=== PATIENT | female | born 1975 | race Caucasian/White ===

== ENCOUNTER → 2017-08-17 | Outpatient (CLI) | payer OTHER ==
[~2017-08-17] MED LIST: ALBU3IS INH; ALBU90I INH; ALBU90OI INH; ALBU90OI61 INH; ARIP15; ARIP15 PO; ASPI81CH PO; AZIT250 PO; BUDE6HFA; BUDE6HFA INH; Benztropine Mesy1 MG PO; CLON.5 PO; CYCL10 PO; Cleocin HCl150 MG PO; FLUO10 PO; FLUSAL2505 IH; HYDACE5 PO; HYDCHL12.5 PO; HYDR-86 PO; Imitrex100 MG PO; Keflex500 MG PO; LITH300C PO; Lopressor 25 mg25 MG PO; NAPR500 PO; OMEP40CA12 PO; ONDA8 PO; PARO20 PO; PRED20 PO; Prozac20 MG PO; Pyridium200 MG PO; Questran4 GM; SERT100 PO; SERT50 PO; SUMA25 PO; TESTOSTERONE; TOPI50 PO; Ultram50 MG PO; VICODIN ES 7.51 EACH PO; Zofran Odt4 MG SL
[2017-08-17 15:03] LABS: BASOPHILS ABSOLUTE AUTO 0.07 K/mm3 (0.00-0.23); BASOPHILS PERCENT AUTO 1 % (0-2); EOSINOPHILS ABSOLUTE AUTO 0.15 K/mm3 (0.00-0.68); EOSINOPHILS PERCENT AUTO 2 % (0-6); Hemoglobin 14.3 g/dL (11.5-16.0); IMMATURE GRAN ABSOLUTE AUTO 0.04 K/mm3 (0.00-0.10); IMMATURE GRAN PERCENT AUTO 0 % (0-1); LYMPHOCYTES ABSOLUTE AUTO 2.45 K/mm3 (0.84-5.20); LYMPHOCYTES PERCENT AUTO 27 % (21-46); MONOCYTES ABSOLUTE AUTO 0.59 K/mm3 (0.16-1.47); MONOCYTES PERCENT AUTO 6 % (4-13); Mean Corpuscular HGB 37.1 pg (26.0-34.0); Mean Corpuscular Volume 109 fL (80-100); Mean Platelet Volume 9.6 fL (9.1-12.4); NEUTROPHILS ABSOLUTE AUTO 5.95 K/mm3 (1.96-9.15); NEUTROPHILS PERCENT AUTO 64 % (41-73); Platelet Count 438 K/mm3 (150-400); RDW Coefficient Variation 14.2 % (11.7-14.2); RDW Standard Deviation 57.6 fL (35.1-46.3); Red Blood Cell Count 3.85 M/mm3 (3.80-5.20); White Blood Cell Count 9.25 K/mm3 (4.00-11.30)
[2017-08-17 15:14] LABS: Alanine Aminotransfer (ALT/SGP 72 U/L (12-78); Albumin, Blood 3.6 g/dL (3.4-5.0); Alk Phos 58 U/L (40-126); Anion Gap 13 mmol/L (6-16); Aspartate Aminotrans (AST/SGOT 60 U/L (12-37); Bilirubin, Total 0.4 mg/dL (0.1-1.0); Blood Urea Nitrogen 8 mg/dL (8-24); Bun/Creatinine Ratio 11.1 (12.0-20.0); CO2, Blood 23 mmol/L (21-32); Calcium, Blood 9.1 mg/dL (8.5-10.1); Chloride, Blood 105 mmol/L (98-108); Creatinine, Blood 0.72 mg/dL (0.40-1.00); Globulin, Blood 3.5 g/dL (2.2-4.0); Glomerular Filtration Rate >60 (60-); Glucose, Blood 100 mg/dL (70-99); Potassium, Blood 3.3 mmol/L (3.5-5.5); Sodium, Blood 141 mmol/L (136-145); Total Protein, Blood 7.1 g/dL (6.4-8.2)
== END ==
LOC: LAB EV 14:40
PROVIDERS: Physician Assistant Medical
DX: R10.9 Unspecified abdominal pain (principal)
CPT/HCPCS: 80053; 83690; 85025

== ENCOUNTER 2018-03-08 06:33 | Day surgery (SDC) | payer MEDICARE, OTHER ==
[~2018-03-08] VITALS: Ht 167.6 cm; Wt 96.2 kg
[~2018-03-08 06:33] MED LIST changes: -Imitrex100 MG PO
== END 2018-03-08 22:52 | disposition home or self-care (01) ==
LOC: ORSCMMR 06:33 → ORD 08:15 → ORSCMMR 08:15
PROVIDERS: Surgery
PROC: 0J9M0ZX Drainage of Left Upper Leg Subcutaneous Tissue and Fascia, Open Approach, Diagnostic (ICD-10-PCS; principal; 2018-03-08 08:15)
DX: S70.12XA Contusion of left thigh, initial encounter (principal); I10 Essential (primary) hypertension; J44.9 Chronic obstructive pulmonary disease, unspecified; F41.8 Other specified anxiety disorders; Z79.899 Other long term (current) drug therapy; F17.210 Nicotine dependence, cigarettes, uncomplicated
CPT/HCPCS: 87070; 87205; 88305; J0690; J1100; J1885; J2250; J2405; J3010; J7120

== ENCOUNTER 2018-03-10 00:26 | Day surgery (SDC) | payer MEDICARE, OTHER ==
[2018-03-10] MEDS ORDERED: Imitrex100 MG PO (13:42)
== END 2018-03-10 14:14 | disposition home or self-care (01) ==
LOC: ATC 00:26
DX: Z48.01 Encounter for change or removal of surgical wound dressing (principal); S70.12XA Contusion of left thigh, initial encounter; V49.9XXA Car occupant (driver) (passenger) injured in unspecified traffic accident, initial encounter; F17.210 Nicotine dependence, cigarettes, uncomplicated; I10 Essential (primary) hypertension; F41.9 Anxiety disorder, unspecified; F32.9 Major depressive disorder, single episode, unspecified; J44.9 Chronic obstructive pulmonary disease, unspecified; Z79.899 Other long term (current) drug therapy
CPT/HCPCS: 99214

== ENCOUNTER 2018-03-13 00:21 | Day surgery (SDC) | payer MEDICARE, OTHER ==
[~2018-03-13 00:21] MED LIST changes: +Imitrex100 MG PO
== END 2018-03-13 15:55 | disposition home or self-care (01) ==
LOC: ATC 00:21
DX: S70.12XA Contusion of left thigh, initial encounter (principal); I10 Essential (primary) hypertension; J45.909 Unspecified asthma, uncomplicated; F32.9 Major depressive disorder, single episode, unspecified
CPT/HCPCS: 99212

== ENCOUNTER 2018-03-20 01:44 | Day surgery (SDC) | payer MEDICARE, OTHER | END 2018-03-20 13:55 | disposition home or self-care (01) | LOC: ATC 01:44 | DX: Z48.00 Encounter for change or removal of nonsurgical wound dressing (principal); S70.12XA Contusion of left thigh, initial encounter; V49.60XA Unspecified car occupant injured in collision with unspecified motor vehicles in traffic accident, initial encounter; F17.210 Nicotine dependence, cigarettes, uncomplicated; I10 Essential (primary) hypertension; F41.9 Anxiety disorder, unspecified; F32.9 Major depressive disorder, single episode, unspecified; Z79.899 Other long term (current) drug therapy | CPT/HCPCS: 99214 ==

== ENCOUNTER 2018-03-22 00:10 | Day surgery (SDC) | payer MEDICARE, OTHER | END 2018-03-22 11:30 | disposition home or self-care (01) | LOC: ATC 00:10 | DX: S70.12XA Contusion of left thigh, initial encounter (principal); V49.60XA Unspecified car occupant injured in collision with unspecified motor vehicles in traffic accident, initial encounter; F17.210 Nicotine dependence, cigarettes, uncomplicated; I10 Essential (primary) hypertension; J44.9 Chronic obstructive pulmonary disease, unspecified; Z79.82 Long term (current) use of aspirin; Z79.899 Other long term (current) drug therapy | CPT/HCPCS: 99212 ==

== ENCOUNTER 2018-03-24 00:15 | Day surgery (SDC) | payer MEDICARE, OTHER | END 2018-03-24 22:45 | disposition home or self-care (01) | LOC: ATC 00:15 | DX: S70.12XA Contusion of left thigh, initial encounter (principal) | CPT/HCPCS: 99214 ==

== ENCOUNTER 2018-03-31 00:30 | Day surgery (SDC) | payer MEDICARE, OTHER | END 2018-03-31 15:15 | disposition home or self-care (01) | LOC: ATC 00:30 | DX: S70.12XA Contusion of left thigh, initial encounter (principal); I10 Essential (primary) hypertension; J45.909 Unspecified asthma, uncomplicated | CPT/HCPCS: 99212 ==

== ENCOUNTER 2018-04-03 10:20 | Day surgery (SDC) | payer MEDICARE, OTHER | END 2018-04-03 22:48 | disposition home or self-care (01) | LOC: WOUND 10:20 → ATC 15:30 → WOUND 22:48 | DX: S71.102D Unspecified open wound, left thigh, subsequent encounter (principal); S70.12XD Contusion of left thigh, subsequent encounter; E66.9 Obesity, unspecified; I10 Essential (primary) hypertension; Z72.0 Tobacco use; V48.9XXD Unspecified car occupant injured in noncollision transport accident in traffic accident, subsequent encounter | CPT/HCPCS: G0463 ==

== ENCOUNTER 2018-04-05 12:22 | Day surgery (SDC) | payer MEDICARE, OTHER | END 2018-04-05 22:51 | disposition home or self-care (01) | LOC: WOUND 12:22 | PROC: 2W1MX6Z Compression of Left Lower Extremity using Pressure Dressing (ICD-10-PCS; principal; 2018-04-05) | DX: S71.102A Unspecified open wound, left thigh, initial encounter (principal); S70.12XA Contusion of left thigh, initial encounter; Z72.0 Tobacco use; E66.9 Obesity, unspecified; I10 Essential (primary) hypertension ==

== ENCOUNTER 2018-04-07 12:17 | Day surgery (SDC) | payer MEDICARE, OTHER | END 2018-04-07 13:20 | disposition home or self-care (01) | LOC: WOUND 12:17 | DX: S71.102D Unspecified open wound, left thigh, subsequent encounter (principal); S70.12XD Contusion of left thigh, subsequent encounter; Z72.0 Tobacco use; I10 Essential (primary) hypertension; V89.2XXD Person injured in unspecified motor-vehicle accident, traffic, subsequent encounter ==

== ENCOUNTER 2018-04-10 12:22 | Day surgery (SDC) | payer MEDICARE, OTHER | END 2018-04-10 22:43 | disposition home or self-care (01) | LOC: WOUND 12:22 | PROC: 2W1MX6Z Compression of Left Lower Extremity using Pressure Dressing (ICD-10-PCS; principal; 2018-04-10) | DX: S71.102D Unspecified open wound, left thigh, subsequent encounter (principal); S70.12XD Contusion of left thigh, subsequent encounter; Z72.0 Tobacco use; E66.9 Obesity, unspecified; I10 Essential (primary) hypertension ==

== ENCOUNTER 2018-04-12 12:30 | Day surgery (SDC) | payer MEDICARE, OTHER | END 2018-04-12 13:15 | disposition home or self-care (01) | LOC: WOUND 12:30 | DX: S70.12XA Contusion of left thigh, initial encounter (principal); Z72.0 Tobacco use; E66.9 Obesity, unspecified; I10 Essential (primary) hypertension; V89.2XXA Person injured in unspecified motor-vehicle accident, traffic, initial encounter ==

== ENCOUNTER 2018-04-14 12:20 | Day surgery (SDC) | payer MEDICARE, OTHER | END 2018-04-14 13:00 | disposition home or self-care (01) | LOC: WOUND 12:20 | DX: S71.102A Unspecified open wound, left thigh, initial encounter (principal); I10 Essential (primary) hypertension; F17.210 Nicotine dependence, cigarettes, uncomplicated; E66.9 Obesity, unspecified ==

== ENCOUNTER 2018-04-17 10:25 | Day surgery (SDC) | payer MEDICARE, OTHER | END 2018-04-17 22:47 | disposition home or self-care (01) | LOC: WOUND 10:25 | DX: S70.12XD Contusion of left thigh, subsequent encounter (principal); I10 Essential (primary) hypertension; Z72.0 Tobacco use ==

== ENCOUNTER 2018-04-19 07:43 | Day surgery (SDC) | payer MEDICARE, OTHER | END 2018-04-19 22:49 | disposition home or self-care (01) | LOC: WOUND 07:43 | DX: S70.12XD Contusion of left thigh, subsequent encounter (principal); E66.9 Obesity, unspecified; I10 Essential (primary) hypertension; Z72.0 Tobacco use; V89.2XXD Person injured in unspecified motor-vehicle accident, traffic, subsequent encounter | CPT/HCPCS: G0463 ==

== ENCOUNTER 2018-04-26 00:02 | Day surgery (SDC) | payer MEDICARE, OTHER | END 2018-04-26 22:45 | disposition home or self-care (01) | LOC: WOUND 00:02 | DX: S71.102A Unspecified open wound, left thigh, initial encounter (principal); Z72.0 Tobacco use; I10 Essential (primary) hypertension; V89.2XXA Person injured in unspecified motor-vehicle accident, traffic, initial encounter | CPT/HCPCS: G0463 ==

== ENCOUNTER → 2020-07-29 | Outpatient (CLI) | payer MEDICARE, OTHER ==
[2020-07-30 10:25] LABS: Candida species (DNA Probe) Negative (NEGATIVE); G. vaginalis (DNA Probe) Positive (NEGATIVE); T. vaginalis (DNA Probe) Negative (NEGATIVE)
[2020-07-30 14:10] LABS: HPV 16 Negative (Negative); HPV 18 Negative (Negative); HPV OTHER HR TYPES Negative (Negative)
== END ==
LOC: LAB SHORT 12:56 → LAB SRC 12:56
PROVIDERS: Nurse Practitioner Family
DX: Z01.419 Encounter for gynecological examination (general) (routine) without abnormal findings (principal); N89.8 Other specified noninflammatory disorders of vagina
CPT/HCPCS: 87480; 87510; 87624; 87660; G0123

== ENCOUNTER → 2021-06-09 | Outpatient (CLI) | payer MEDICARE, OTHER ==
[2021-06-16 13:54] LABS: Stool Occult Bld Immuno 1 Negative (NEGATIVE)
== END ==
LOC: LAB SHORT 12:00
PROVIDERS: Physician Assistant
DX: Z12.11 Encounter for screening for malignant neoplasm of colon (principal)
CPT/HCPCS: G0328

== ENCOUNTER → 2022-06-07 | Outpatient (CLI) | payer MEDICARE, OTHER ==
[2022-06-08 11:11] LABS: Candida species (DNA Probe) Positive (NEGATIVE); G. vaginalis (DNA Probe) Positive (NEGATIVE); T. vaginalis (DNA Probe) Negative (NEGATIVE)
== END ==
LOC: LAB 14:03 → LAB SHORT 14:03
PROVIDERS: Physician Assistant
DX: N76.0 Acute vaginitis (principal); B96.89 Other specified bacterial agents as the cause of diseases classified elsewhere
CPT/HCPCS: 87480; 87510; 87660

== ENCOUNTER 2023-07-27 08:49 | Emergency (ER) | payer MEDICARE, OTHER ==
[~2023-07-27] VITALS: Ht 167.6 cm; Wt 113.4 kg
[2023-07-27] MEDS ORDERED: BUSPIRONE HCL10 M6 PO (09:25)
[2023-07-27] MEDS ORDERED: LIPITOR80 MG PO (09:25)
[2023-07-27] MEDS ORDERED: NEBIVOLOL HCL10 MG PO (09:25)
[2023-07-27 09:38] LABS: BASOPHILS ABSOLUTE AUTO 0.04 K/mm3 (0.00-0.23); BASOPHILS PERCENT AUTO 0 % (0-2); EOSINOPHILS ABSOLUTE AUTO 0.13 K/mm3 (0.00-0.68); EOSINOPHILS PERCENT AUTO 1 % (0-6); Hematocrit 41.9 % (33.0-51.0); Hemoglobin 14.3 g/dL (11.5-16.0); IMMATURE GRAN ABSOLUTE AUTO 0.03 K/mm3 (0.00-0.10); IMMATURE GRAN PERCENT AUTO 0 % (0-1); LYMPHOCYTES ABSOLUTE AUTO 1.38 K/mm3 (0.84-5.20); LYMPHOCYTES PERCENT AUTO 13 % (21-46); MONOCYTES ABSOLUTE AUTO 0.46 K/mm3 (0.16-1.47); MONOCYTES PERCENT AUTO 4 % (4-13); Mean Corpuscular HGB 34.2 pg (26.0-34.0); Mean Corpuscular HGB Conc 34.1 g/dL (31.5-36.5); Mean Corpuscular Volume 100 fL (80-100); Mean Platelet Volume 9.1 fL (9.1-12.4); NEUTROPHILS ABSOLUTE AUTO 8.59 K/mm3 (1.96-9.15); NEUTROPHILS PERCENT AUTO 81 % (41-73); Platelet Count 381 K/mm3 (150-400); RDW Coefficient Variation 13.8 % (11.7-14.2); RDW Standard Deviation 50.9 fL (35.1-46.3); Red Blood Cell Count 4.18 M/mm3 (3.80-5.20); White Blood Cell Count 10.63 K/mm3 (4.00-11.30)
[2023-07-27 09:57] LABS: Albumin, Blood 3.7 g/dL (3.4-5.0); Bilirubin, Total 0.7 mg/dL (0.1-1.0); Bun/Creatinine Ratio 13.3 (12.0-20.0); Calcium, Blood 9.1 mg/dL (8.5-10.1); Creatinine, Blood 0.68 mg/dL (0.40-1.00); Globulin, Blood 3.6 g/dL (2.2-4.0); Total Protein, Blood 7.3 g/dL (6.4-8.2)
[2023-07-27] MEDS ORDERED: CEPH500 PO (11:02)
[2023-07-27 11:23] VITALS: BP 121/81
== END 2023-07-27 11:24 | disposition home or self-care (01) ==
LOC: ER 08:49
PROVIDERS: Emergency Medicine
DX: L03.116 Cellulitis of left lower limb (principal); L27.0 Generalized skin eruption due to drugs and medicaments taken internally; T50.8X5A Adverse effect of diagnostic agents, initial encounter; J45.909 Unspecified asthma, uncomplicated; M10.9 Gout, unspecified; F41.9 Anxiety disorder, unspecified; F31.9 Bipolar disorder, unspecified; F17.200 Nicotine dependence, unspecified, uncomplicated; Z79.899 Other long term (current) drug therapy
CPT/HCPCS: 73630; 80053; 85025; 93971; 96374; 96375; 99283-25; J1100; J1200